=== PATIENT | female | born 1965 | race Caucasian/White ===

== ENCOUNTER 2022-12-03 12:52 | Emergency (ER) | payer BC ==
[~2022-12-03] VITALS: Ht 162.6 cm; Wt 59.0 kg
[2022-12-03 13:00] VITALS: BP_SYST 104
[2022-12-03] MEDS ORDERED: AMAN100C19 PO (13:30)
[2022-12-03] MEDS ORDERED: LEVO50CA4 PO (13:35)
[2022-12-03] MEDS ORDERED: APIX5TAB4 PO (13:35)
[2022-12-03] MEDS ORDERED: ESCI20TA38 PO (13:35)
[2022-12-03 13:39] LABS: BASOPHILS % (AUTO) 0.4 % (0.0-2.0); EOSINOPHILS # (AUTO) 0.1 K/uL (0.0-0.4); EOSINOPHILS % (AUTO) 0.8 % (0.0-4.0); HEMATOCRIT 37.6 % (36-48); HEMOGLOBIN 12.2 g/dL (12.0-16.0); LYMPHOCYTES # (AUTO) 1.6 K/uL (1.0-5.5); LYMPHOCYTES % (AUTO) 21.6 % (20.5-51.5); MEAN CORPUSCULAR HEMOGLOBIN 27 pg (27-31); MEAN CORPUSCULAR HGB CONC 32 % (32-36); MEAN CORPUSCULAR VOLUME 83 fL (79.0-98.0); MONOCYTES # (AUTO) 0.5 K/uL (0.0-1.0); MONOCYTES % (AUTO) 6.8 % (1.7-9.3); NEUTROPHILS # (AUTO) 5.3 K/uL (1.8-7.7); NEUTROPHILS % (AUTO) 70.4 % (40.0-70.0); PLATELET COUNT (AUTO) 318 K/uL (130-430); RED BLOOD CELL COUNT(AUTO) 4.55 MIL/uL (4.2-6.2); RED CELL DISTRIBUTION WIDTH 17.3 % (9.0-15.0); WHITE BLOOD COUNT (AUTO) 7.6 K/uL (4.8-10.8)
[2022-12-03 13:51] LABS: CALCIUM 9.7 mg/dL (8.4-11.0); CREATININE 0.58 mg/dL (0.55-1.30)
[2022-12-03 13:56] LABS: ALBUMIN 3.3 g/dL (3.4-4.8); TOTAL BILIRUBIN 0.2 mg/dL (0.0-1.0)
[2022-12-03] MEDS ORDERED: LORazepam 2 MG/ML VIAL IVP ONE (16:45)
[2022-12-04 00:21] VITALS: BP_SYST 121
== END 2022-12-04 00:23 | disposition short-term general hospital (02) ==
LOC: SED 12:52
DX: G93.89 Other specified disorders of brain (principal); Z98.2 Presence of cerebrospinal fluid drainage device; Z86.73 Personal history of transient ischemic attack (TIA), and cerebral infarction without residual deficits; Z79.899 Other long term (current) drug therapy
CPT/HCPCS: 99285; 96374; 70450; 71045; 80053; 85025; 87040; 36415; 70250; 70360; 74018; 76376; 83605; J2060